=== PATIENT | female | born 1960 ===

== ENCOUNTER → 2017-09-20 | Outpatient (CLI) | payer BC ==
--- NOTE | 2017-09-22 07:17 | MM ---
Reason for exam: screening (asymptomatic). Last mammogram was performed 1 year and 9 months ago. History: Patient is postmenopausal. Benign right mammotome panel of the right breast, September 18, 2009. Benign excisional biopsy of the right breast. Physical Findings: A clinical breast exam by your physician is recommended on an annual basis and results should be correlated with mammographic findings. MG 3D Screening Mammo W/Cad Bilateral CC and MLO view(s) were taken. Prior study comparison: December 19, 2015, right breast MG work up mamm w CAD RT. December 09, 2015, bilateral MG screening mammo w CAD. July 23, 2014, bilateral MG screening mammo w CAD. The breast tissue is heterogeneously dense. This may lower the sensitivity of mammography. No suspicious abnormality. Post biopsy change in the right breast. No significant changes when compared with prior studies. ASSESSMENT: Benign, BI-RAD 2 RECOMMENDATION: Routine screening mammogram of both breasts in 1 year.
== END | disposition home or self-care (01) ==
LOC: RADMAMWWP 14:56
PROVIDERS: ATTEND Obstetrics & Gynecology
DX: Z12.31 Encounter for screening mammogram for malignant neoplasm of breast (principal)
CPT/HCPCS: 77063; 77067

== ENCOUNTER → 2018-10-31 | Outpatient (CLI) | payer BC ==
--- NOTE | 2018-11-02 09:47 | MM ---
Reason for exam: screening (asymptomatic). Last mammogram was performed 1 year and 1 month ago. History: Patient is postmenopausal. Benign right mammotome panel of the right breast, September 18, 2009. Benign excisional biopsy of the right breast. Physical Findings: A clinical breast exam by your physician is recommended on an annual basis and results should be correlated with mammographic findings. MG 3D Screening Mammo W/Cad Bilateral CC and MLO view(s) were taken. Prior study comparison: September 20, 2017, bilateral MG 3d screening mammo w/cad. December 19, 2015, right breast MG work up mamm w CAD RT. There are scattered fibroglandular densities. Previous mammotome biopsy in the right breast. There is chronic nodularity in the right breast. No significant changes when compared with prior studies. ASSESSMENT: Negative, BI-RAD 1 RECOMMENDATION: Routine screening mammogram of both breasts in 1 year.
== END | disposition home or self-care (01) ==
LOC: RADMAMWWP 16:44
PROVIDERS: ATTEND Obstetrics & Gynecology
DX: Z12.31 Encounter for screening mammogram for malignant neoplasm of breast (principal)
CPT/HCPCS: 77063; 77067

== ENCOUNTER → 2020-03-05 | Outpatient (CLI) | payer OTHER ==
--- NOTE | 2020-03-06 11:06 | MM ---
Reason for exam: screening (asymptomatic). Last mammogram was performed 1 year and 4 months ago. History: Patient is postmenopausal. Benign right mammotome panel of the right breast, September 18, 2009. Benign excisional biopsy of the right breast. Physical Findings: A clinical breast exam by your physician is recommended on an annual basis and results should be correlated with mammographic findings. MG 3D Screening Mammo W/Cad Bilateral CC, MLO, and XCCL view(s) were taken. Prior study comparison: October 31, 2018, bilateral MG 3d screening mammo w/cad. September 20, 2017, bilateral MG 3d screening mammo w/cad. No significant changes when compared with prior studies. ASSESSMENT: Benign, BI-RAD 2 RECOMMENDATION: Routine screening mammogram of both breasts in 1 year.
== END | disposition home or self-care (01) ==
LOC: RADMAMWWP 14:03
PROVIDERS: ATTEND Obstetrics & Gynecology
DX: Z12.31 Encounter for screening mammogram for malignant neoplasm of breast (principal)
CPT/HCPCS: 77063; 77067

== ENCOUNTER 2020-06-25 09:34 | Day surgery (SDC) | payer OTHER ==
[~2020-06-25 09:34] MED LIST: ALPRAZolam 0.25 MG TAB PO PRN; ALPRAZolam 0.5 MG TAB PO PRN; ASPIRIN 325 MG TAB PO STA; NITROGLYCERIN SL TABS 0.4 MG TAB SUBLINGUAL PRN; SODIUM CHLORIDE 0.9% 1,000 ML in EMPTY BAG 1 BAG IV ONE
[2020-06-25] MEDS ORDERED: LIDOCAINE 1% INJ 10MG/ML (20 ML MDV) ONE (10:46)
[2020-06-25] MEDS ORDERED: VERAPAMIL 2.5 MG/ML 2 ML AMP ONE (10:46)
[2020-06-25] MEDS ORDERED: fentaNYL (PF) 50 MCG/ML 2 ML AMP ONE (10:47)
[2020-06-25] MEDS ORDERED: NITROGLYCERIN SL TABS 0.4 MG TAB SUBLINGUAL ONE ×2 (10:58→11:03)
[2020-06-25] MEDS ORDERED: LIDOCAINE 1% INJ 10MG/ML (20 ML MDV) SQ ONE (11:00)
[2020-06-25] MEDS: MIDAZOLAM 2 MG/2 ML VIAL IV ONE ×2 (11:05→11:09)
[2020-06-25] MEDS ORDERED: VERAPAMIL SYRINGE (5 MG/10 ML) INTRAARTER ONE (11:05)
[2020-06-25] MEDS: NITROGLYCERIN 1000MCG/10ML SYRINGE INTRACORON ONE ×2 (11:16→11:52)
[2020-06-25] MEDS ORDERED: TIROFIBAN BOLUS 12.5MG/250 ML BAG IV ONE (11:33)
[2020-06-25] MEDS ORDERED: HYDROmorphone 0.5 MG/0.5 ML SYRINGE IVP ONE (11:33)
[2020-06-25] MEDS ORDERED: TIROFIBAN 12.5 MG IV ONE (11:35)
[2020-06-25] MEDS ORDERED: NS IV ONE (11:35)
[2020-06-25] MEDS ORDERED: IOPAMIDOL-370 100ML BTL INJ ONE (11:50)
[2020-06-25] MEDS ORDERED: NOREPINEPHRINE 4 MG in SODIUM CHLORIDE 0.9% 250 ML IV ONE (11:55)
[2020-06-25] MEDS ORDERED: TICAGRELOR 90 MG TAB ONE (12:13)
[2020-06-25] MEDS ORDERED: TICAGRELOR 90 MG TAB PO ONE (12:15)
[2020-06-25] MEDS ORDERED: RX INFO: IV CONTRAST WAS GIVEN 1 EACH MISC MISCELLANE PRN (12:31)
[2020-06-25] MEDS ORDERED: MAG HYDROX/AL HYDROX/SIMETH 30 ML CUP PO PRN (12:31)
[2020-06-25] MEDS ORDERED: ZOLPIDEM 5 MG TAB PO PRN (12:31)
[2020-06-25] MEDS ORDERED: NITROGLYCERIN SL TABS 0.4 MG TAB SUBLINGUAL PRN (12:31)
[2020-06-25] MEDS ORDERED: ATROPINE SULFATE 0.1 MG/ML 10ML SYRINGE IV PRN (12:31)
[2020-06-25] MEDS ORDERED: TIROFIBAN 12.5MG-250ML NS 250 ML IV SCH (13:00)
[2020-06-25 14:01] VITALS: BMI 26.9
--- NOTE | 2020-06-25 14:15 | PTCA ---
PERCUTANEOUSTRANS CORORONARY ANGIOGRAPHY PROCEDURE: PTCA and stenting of mid LAD. PERFORMED BY: Dr. Xavier Mills. Moderate conscious sedation time was 73 minutes. Patient was administered Versed and Dilaudid. Oxygen saturation, hemodynamics and EKG were monitored closely. PROCEDURES: 1. Fractional flow reserve assessment of mid LAD lesion. 2. Fractional flow reserve assessment of ostial circumflex lesion. 3. PTCA and stenting of mid LAD with 2 drug-eluting stents. CLINICAL INFORMATION: Mrs. Krista Ignacio is a 59-year-old lady with a history of hypertension and also recent hospitalization for non ST elevation GA at [facility]. She had a coronary angiography by Dr. Sosa, which revealed an ostial circumflex lesion of 60%- 70%, mid LAD calcified lesion of 55%-60%. She was advised intervention after FFR and brought in for the procedure electively. I evaluated the patient, talked to the patient and , explained to them the rationale, risks, benefits, options. I suggested that we will do FFR of mid LAD and ostial circumflex and perform intervention based on the findings. If both were significant, she would be considered as a candidate for surgery as well. She has hypertension, hyperlipidemia, and she was placed on aspirin, metoprolol succinate, Imdur, and atorvastatin. PROCEDURE NOTE: Under local anesthesia and strict aseptic precautions, a 6-Lao introducer was placed in the right radial artery. A JL3.5 guide catheter was used to cannulate the left coronary artery. A Verrata wire was used and positioned in the mid LAD. IFR and FFR were performed. IFR was 0.84 and FFR was 0.74. I then proceeded to perform intervention of the LAD, which was a mid LAD lesion. Following the LAD intervention, I advanced the same FFR wire and I rechecked the IFR in LAD and this was 1.01. I then used the same wire and advanced into the circumflex and checked IFR. This was 1.0. The wires were then taken out and the sheath taken out and TR band applied as per protocol and patient was sent to the room in stable condition. PCI PROCEDURE DETAILS: I used a JL3.5 guide catheter. After performing IFR and FFR of LAD using the same Verrata wire and a 3.0 caliber 12 mm long NC Trek balloon, I performed a dilatation for 30 seconds at 12 atmospheres. Patient had chest pain and mild precordial ST elevation. I then tried to advance a 3.25 caliber 15 mm stent but I had difficulty. I therefore advanced another run-through wire alongside the Verrata wire. Using the Verrata wire as a antonino, I advanced the 3.25 caliber 15 mm stent over the run-through wire and deployed this at 12 atmospheres. Excellent angiographic result was achieved. Just distal to the stented area, there was a hazy an area raising the possibility of a dissection. Patient had chest pain, mild ST elevation. She also has a transient occlusion of a small septal branch that came off from the lesion. To address this hazy area distal to the first stent, I advanced a 2.5 caliber 8 mm long Xience stent and telescoped this distally and deployed this at 10 atmospheres. Patient had similar chest pain and EKG changes. Excellent angiographic result was achieved. She had transient hypotension with small septal occlusion and then the septal flow returned. We used about 3-5 minutes Levophed, but pressure normalized. Levophed was discontinued. Patient received intravenous heparin and ACT was 276. She also received Aggrastat bolus and infusion as per protocol. The patient received 180 mg of Brilinta. Excellent angiographic result without complication was achieved. Results were discussed with the patient and . I expect she will be discharged if she remains stable tomorrow. MMODL / IJN: [id number] /
[2020-06-25] MEDS: SODIUM CHLORIDE 0.9% 1,000 ML IV SCH (18:00)
[2020-06-25] MEDS ORDERED: ATORVASTATIN 80 MG TAB PO SCH (21:00)
[2020-06-25] MEDS ORDERED: LOSARTAN 25 MG TAB PO SCH (21:00)
[2020-06-26] MEDS: SODIUM CHLORIDE 0.9% 1,000 ML IV SCH (03:18)
[2020-06-26 06:03] LABS: Basophils % (A) 1 %; Eosinophils # (A) 0.1 k/uL (0-0.7); Eosinophils % (A) 1 %; HCT 38.9 % (34.0-46.0); HGB 12.7 gm/dL (11.4-16.0); Lymphocytes # (A) 1.1 k/uL (1.0-4.8); Lymphocytes % (A) 22 %; MCH 30.8 pg (25.0-35.0); MCHC 32.7 g/dL (31.0-37.0); MCV 94.1 fL (80.0-100.0); Mean Platelet Volume 7.5; Monocytes # (A) 0.4 k/uL (0-1.0); Monocytes % (A) 8 %; Neutrophils # (A) 3.3 k/uL (1.3-7.7); Neutrophils % (A) 66 %; Platelet Count 246 k/uL (150-450); RBC 4.13 m/uL (3.80-5.40); RDW 13.5 % (11.5-15.5); WBC 5.1 k/uL (3.8-10.6)
[2020-06-26 06:12] LABS: African American GFR (CKD) >90 (>60 ml/min/1.73 sqM); Anion Gap 4 mmol/L; Blood Urea Nitrogen 10 mg/dL (7-17); Carbon Dioxide 27 mmol/L (22-30); Chloride 110 mmol/L (98-107); Glucose 97 mg/dL (74-99); Non-African American GFR(CKD) 89 (>60 ml/min/1.73 sqM); Potassium 4.1 mmol/L (3.5-5.1); Sodium 141 mmol/L (137-145)
[2020-06-26 07:55] VITALS: BP 124/59; PULSE 68; RESP 15; TEMP 98.1
[2020-06-26] MEDS ORDERED: TICAGRELOR 90 MG TAB PO SCH (09:00)
[2020-06-26] MEDS ORDERED: ASPIRIN 81 MG PO SCH (09:00)
[2020-06-26] MEDS ORDERED: METOPROLOL SUCCINATE (ER) 25 MG TAB.ER.24H PO SCH (09:00)
--- NOTE | 2020-06-26 15:27 | DS ---
DISCHARGE SUMMARY DATE OF ADMISSION: 06/25/2020 DATE OF DISCHARGE: 06/26/2020 DIAGNOSIS: Unstable angina. PROCEDURES PERFORMED: 1. Fractional flow reserve assessment of LAD and circumflex. 2. PTCA and stenting of mid LAD with two drug-eluting stents with excellent results. Mrs. Ignacio was admitted for elective FFR and PCI. Procedure was performed from the right radial approach. She had a significantly abnormal IFR and FFR in LAD, which was stented with two drug-eluting stents. Post-procedure IFR was normal. Circumflex IFR was also normal. Post-procedure course was uneventful. She had a small septal branch occlusion which caused some chest discomfort transiently. This morning she is asymptomatic, doing well, ambulating without symptoms. Right radial cath site is clean and dry with a good pulse. There is some area of ecchymosis. Laboratory data and EKG are unremarkable. Blood pressure 120/70, pulse rate is 70. No JVD. S1, S2 heard normally. Short systolic murmur audible at left sternal border. Lungs are clear. Abdomen and lower extremity exam unchanged. Right radial site is clean and dry with a good pulse with a small area of ecchymosis. PLAN: Plan is to discharge her on Brilinta 90 mg b.i.d. and aspirin 81 mg daily. She will be on Lipitor 80 mg daily, metoprolol succinate 25 mg daily. Patient is reluctant to take any Cozaar. We will stop the Imdur, increase activity, and she will be discharged today and see Dr. Sosa in one week in the office. MMODL / IJN: [id number] /
== END 2020-06-26 10:18 | disposition home or self-care (01) ==
LOC: CATHCVL 09:34 → 3NCARDOBS 12:11 → 3SCARD 12:30 → CATHCVL 06-26 10:18
PROVIDERS: ATTEND Internal Medicine Interventional Cardiology
DX: I25.110 Atherosclerotic heart disease of native coronary artery with unstable angina pectoris (principal); I10 Essential (primary) hypertension; E78.5 Hyperlipidemia, unspecified; Z79.82 Long term (current) use of aspirin; Z79.899 Other long term (current) drug therapy
CPT/HCPCS: 93571; 93572; 85347; 80048; 85025; C9600; C1887; C1725; C1769 ×4; C1894 ×2; C1874; J2250; J2001; J1644; J3246; J1170; Q9967

== ENCOUNTER → 2021-03-17 | Outpatient (CLI) | payer BC ==
--- NOTE | 2021-03-19 08:28 | MM ---
Reason for exam: screening (asymptomatic). Last mammogram was performed 1 year ago. History: Patient is postmenopausal. Benign right mammotome panel of the right breast, September 18, 2009. Benign excisional biopsy of the right breast. Physical Findings: A clinical breast exam by your physician is recommended on an annual basis and results should be correlated with mammographic findings. MG 3D Screening Mammo W/Cad Bilateral CC and MLO view(s) were taken. Prior study comparison: March 05, 2020, bilateral MG 3d screening mammo w/cad. October 31, 2018, bilateral MG 3d screening mammo w/cad. There are scattered fibroglandular densities. No significant changes when compared with prior studies. ASSESSMENT: Benign, BI-RAD 2 RECOMMENDATION: Routine screening mammogram of both breasts in 1 year.
== END | disposition home or self-care (01) ==
LOC: RADMAMWWP 15:42
PROVIDERS: ATTEND Obstetrics & Gynecology
DX: Z12.31 Encounter for screening mammogram for malignant neoplasm of breast (principal)
CPT/HCPCS: 77063; 77067

== ENCOUNTER → 2022-03-18 | Outpatient (CLI) | payer BC ==
--- NOTE | 2022-03-20 07:33 | MM ---
Reason for Exam: Screening (asymptomatic). Last screening mammogram was performed 12 month(s) ago. Patient History: Menarche at age 11. First Full-Term at age 21. Postmenopausal. Benign Excisional Biopsy on the right side. 09/18/2009, Benign Core Biopsy on the right side. Risk Values: Halima 5 year model risk: 2.1%. NCI Lifetime model risk: 8.9%. Prior Study Comparison: 10/31/2018 Bilateral Screening Mammogram, [facility]. 03/05/2020 Bilateral Screening Mammogram, [facility]. 03/17/2021 Bilateral Screening Mammogram, [facility]. Tissue Density: There are scattered fibroglandular densities. Findings: Analyzed By CAD. There is no suspicious group of microcalcifications or new suspicious mass in either breast. Biopsy marker in the right breast. No significant changes from prior examination. Overall Assessment: Benign, BI-RAD 2 Management: Screening Mammogram of both breasts in 1 year. A clinical breast exam by your physician is recommended on an annual basis and results should be correlated with mammographic findings. Electronically signed and approved by: Arden Barahona D.O.
== END | disposition home or self-care (01) ==
LOC: RADMAMWWP 15:03
PROVIDERS: ATTEND Obstetrics & Gynecology
DX: Z12.31 Encounter for screening mammogram for malignant neoplasm of breast (principal)
CPT/HCPCS: 77063; 77067

== ENCOUNTER → 2023-03-19 | Outpatient (CLI) | payer BC ==
--- NOTE | 2023-03-19 11:26 | BD ---
EXAMINATION TYPE: Axial Bone Density DATE OF EXAM: 03/19/2023 CLINICAL HISTORY: 62 years old Female. ICD-10 CODE: M85.851 OSTEOPENIA Height: 63.6 Weight: 148 FRAX RISK QUESTIONS: nothing to note here RISK FACTORS HISTORY OF: Postmenopausal woman: yes, at 53 yrs Hyperparathyroidism: no Adrenal Insufficiency: no MEDICATIONS: Additional Medications: bp meds, statin for cholesterol x2, Additional History: hypertension, cholesterol, osteopenia EXAM MEASUREMENTS: Bone mineral densitometry was performed using the Folloyu System. Bone mineral density as measured about the Lumbar spine is: ----- L1-L4(G/cm2): 1.064 T Score Values are as follows: ----- L1: -1.0 ----- L2: -1.3 ----- L3: -0.9 ----- L4: -0.8 ----- L1-L4: -1.0 Z Score Values are as follows: ----- L1: 0.5 ----- L2: 0.2 ----- L3: 0.6 ----- L4: 0.7 ----- L1-L4: 0.5 Bone mineral density is her first dexa at [facility] Bone mineral density about the R hip (g/cm2): 0.702 Bone mineral density about the L hip (g/cm2): 0.749 T Score values are as follows: -----R Neck: -2.1 -----L Neck: -1.9 -----R Total: -2.4 -----L Total: -2.1 Z Score values are as follows: -----R Neck: -0.7 -----L Neck: -0.5 -----R Total: -1.3 -----L Total: -0.9 Bone mineral density is her first dexa at [facility]. FRAX%s: The graph provided illustrates a 11.3% chance for a major osteoporotic fx and a 1.8% chance f or the hips probability for fx in 10 years time. IMPRESSION: Osteopenia (T Score between -2.5 and -1). There is slightly increased risk of fracture and the patient may be considered for treatment. Re-Screen 2-5 years. NOTE: T-SCORE=SD OF THE YOUNG ADULT MEAN.
--- NOTE | 2023-03-22 09:20 | MM ---
Reason for Exam: Screening (asymptomatic). Last screening mammogram was performed 12 month(s) ago. Patient History: Menarche at age 11. First Full-Term at age 21. Postmenopausal. Benign Excisional Biopsy on the right side. 09/18/2009, Benign Core Biopsy on the right side. Risk Values: Halima 5 year model risk: 2.2%. NCI Lifetime model risk: 8.6%. Prior Study Comparison: 03/05/2020 Bilateral Screening Mammogram, [facility]. 03/17/2021 Bilateral Screening Mammogram, [facility]. 03/18/2022 Bilateral MG 3D screening mammo w/cad, [facility]. Tissue Density: The breast tissue is heterogeneously dense. This may lower the sensitivity of mammography. Findings: Analyzed By CAD. Right breast biopsy clip. There is no suspicious group of microcalcifications or new suspicious mass in either breast. Overall Assessment: Negative, BI-RAD 1 Management: Screening Mammogram of both breasts in [address] [facility] will attempt to contact patient to return for supplemental views and ultrasound if indicated. Patient should continue monthly self-breast exams. A clinical breast exam by your physician is recommended on an annual basis. This exam should not preclude additional follow-up of suspicious palpable abnormalities. Note on Halima scores and lifetime risk: 1. A Halima score greater than 3% is considered moderate risk. If this is the case, consider specialist referral to assess eligibility for a risk reducing agent. 2. If overall lifetime risk for the development of breast cancer is 20% or higher, the patient may qualify for future screening with alternating mammogram and breast MRI. Electronically signed and approved by: Markel Santana DO
== END | disposition home or self-care (01) ==
LOC: RADMAMWWP 09:24
PROVIDERS: ATTEND Internal Medicine
DX: Z12.31 Encounter for screening mammogram for malignant neoplasm of breast (principal); M85.89 Other specified disorders of bone density and structure, multiple sites; I10 Essential (primary) hypertension; Z78.0 Asymptomatic menopausal state
CPT/HCPCS: 77063; 77067; 77080

== ENCOUNTER → 2023-12-23 | Outpatient (CLI) | payer MEDICARE ==
--- NOTE | 2023-12-23 18:31 | US ---
EXAMINATION TYPE: US carotid duplex BILAT DATE OF EXAM: 12/23/2023 COMPARISON: NONE CLINICAL INDICATION: Female, 63 years old with history of I65.23 CAROTID STENOSIS BILTAERAL; States D r wants carotid looked at TECHNIQUE: Carotid duplex ultrasound examination. Indirect Doppler criteria was utilized. FINDINGS: EXAM MEASUREMENTS: RIGHT: Peak Systolic Velocity (PSV) cm/sec ----- Right CCA: 125 ----- Right ICA: 108 ----- Right ECA: 89.6 ICA/CCA ratio: 0.9 RIGHT: End Diastole cm/sec ----- Right CCA: 26.0 ----- Right ICA: 35.7 ----- Right ECA: 14.3 LEFT: Peak Systolic Velocity (PSV) cm/sec ----- Left CCA: 92.9 ----- Left ICA: 117.0 ----- Left ECA: 78.7 ICA/CCA ratio: 1.3 LEFT: End Diastole cm/sec ----- Left CCA: 27.0 ----- Left ICA: 31.2 ----- Left ECA: 9.02 VERTEBRALS (direction of flow): Right Vertebral: Antegrade Left Vertebral: Antegrade Rhythm: Normal GINNING OPERATOR NOTES: No elevated velocities seen. Incidental finding of bilateral complex thyroid lesi ons seen. IMPRESSION: There is no hemodynamically significant stenosis in the common or internal carotid arteries bilateral ly based on color and grayscale imaging, peak systolic velocities and ratios. Criteria for Assigning % of Stenosis / Diameter reduction (Estimation based on the indirect measurements of the internal carotid artery velocities (ICA PSV). 1. Normal (no stenosis)=ICA PSV < 125 cm/s: ratio < 2.0: ICA EDV<40 cm/s. 2. Less than 50% stenosis=ICA PSV < 125 cm/s: ratio < 2.0: ICA EDV<40 cm/s. 3. 50 to 69% stenosis=ICA PSV of 125 to 230 cm/s: ration 2.0 ? 4.0: ICA EDV 40-100 cm/s. 4. Greater than 70% stenosis to near occlusion= ICA PSV > 230 cm/s: ratio > 4.0: ICA EDV > 100 cm/s. 5. Near occlusion= ICA PSV velocities may be low or undetectable: variable ratio and ICA EDV. 6. Total occlusion=unable to detect flow.
== END | disposition home or self-care (01) ==
LOC: RADUSWWP 16:13
PROVIDERS: ATTEND Internal Medicine
DX: I65.23 Occlusion and stenosis of bilateral carotid arteries (principal)
CPT/HCPCS: 93880

== ENCOUNTER → 2024-03-22 | Outpatient (CLI) | payer MEDICARE ==
--- NOTE | 2024-03-27 09:09 | MM ---
Reason for Exam: Screening (asymptomatic). Last screening mammogram was performed 12 month(s) ago. Patient History: Menarche at age 11. First Full-Term at age 21. Postmenopausal. Benign Excisional Biopsy on the right side. 09/18/2009, Benign Core Biopsy on the right side. Risk Values: Halima 5 year model risk: 2.2%. NCI Lifetime model risk: 8.3%. Prior Study Comparison: 03/17/2021 Bilateral Screening Mammogram, [facility]. 03/18/2022 Bilateral MG 3D screening mammo w/cad, [facility]. 03/19/2023 Bilateral MG 3D screening mammo w/cad, [facility]. Tissue Density: There are scattered areas of fibroglandular density. Findings: Analyzed By CAD. There is no suspicious group of microcalcifications or new suspicious mass in either breast. Overall Assessment: Benign, BI-RAD 2 Management: Screening Mammogram of both breasts in 1 year. . Patient should continue monthly self-breast exams. A clinical breast exam by your physician is recommended on an annual basis. This exam should not preclude additional follow-up of suspicious palpable abnormalities. Note on Halima scores and lifetime risk: 1. A Halima score greater than 3% is considered moderate risk. If this is the case, consider specialist referral to assess eligibility for a risk reducing agent. 2. If overall lifetime risk for the development of breast cancer is 20% or higher, the patient may qualify for future screening with alternating mammogram and breast MRI. Electronically signed and approved by: Ji Mir M.D. Radiologis
== END | disposition home or self-care (01) ==
LOC: RADMAMWWP 09:58
PROVIDERS: ATTEND Obstetrics & Gynecology
DX: Z12.31 Encounter for screening mammogram for malignant neoplasm of breast (principal); R92.323 Mammographic fibroglandular density, bilateral breasts; Z78.0 Asymptomatic menopausal state
CPT/HCPCS: 77063; 77067

== ENCOUNTER → 2025-03-26 | Outpatient (CLI) | payer MEDICARE ==
--- NOTE | 2025-03-26 14:09 | MM ---
Reason for Exam: Screening (asymptomatic). Last screening mammogram was performed 12 month(s) ago. Patient History: Menarche at age 11. First Full-Term at age 21. Postmenopausal. Benign Excisional Biopsy on the right side. 09/18/2009, Benign Core Biopsy on the right side. Risk Values: Halima 5 year model risk: 2.3%. NCI Lifetime model risk: 8.0%. Prior Study Comparison: 03/18/2022 Bilateral MG 3D screening mammo w/cad, [facility]. 03/19/2023 Bilateral MG 3D screening mammo w/cad, [facility]. 03/22/2024 Bilateral MG 3D screening mammo w/cad, [facility]. Tissue Density: There are scattered areas of fibroglandular density. Findings: Analyzed By CAD. Right breast biopsy clip. Right breast: There is no suspicious group of microcalcifications or new suspicious mass. Left breast: There is no suspicious group of microcalcifications or new suspicious mass. Overall Assessment: Benign, BI-RAD 2 Management: Screening Mammogram of both breasts in [address] [facility] will attempt to contact patient to return for supplemental views and ultrasound if indicated. Patient should continue monthly self-breast exams. A clinical breast exam by your physician is recommended on an annual basis. This exam should not preclude additional follow-up of suspicious palpable abnormalities. Note on Halima scores and lifetime risk: 1. A Halima score greater than 3% is considered moderate risk. If this is the case, consider specialist referral to assess eligibility for a risk reducing agent. 2. If overall lifetime risk for the development of breast cancer is 20% or higher, the patient may qualify for future screening with alternating mammogram and breast MRI. [facility], , 03/26/2025 2:05 PM. Electronically signed and approved by: Markel Santana DO
== END | disposition home or self-care (01) ==
LOC: RADMAMWWP 10:53
PROVIDERS: ATTEND Internal Medicine
DX: Z12.31 Encounter for screening mammogram for malignant neoplasm of breast (principal); R92.323 Mammographic fibroglandular density, bilateral breasts; Z78.0 Asymptomatic menopausal state
CPT/HCPCS: 77063; 77067